=== PATIENT | male | born 1965 | race Caucasian/White ===

== ENCOUNTER → 2018-01-26 | Outpatient (CLI) | payer BC | END | disposition home or self-care (01) | LOC: C.RDSM 14:15 | PROVIDERS: ATTEND Orthopaedic Surgery | DX: M25.551 Pain in right hip (principal) ==

== ENCOUNTER 2018-11-07 06:40 | Inpatient (IN) ==
--- NOTE | 2018-10-16 09:20 | Anesthesiology Consultation ---
Date of Service October 16, 2018 Assessment & Plan (1) Encounter for pre-operative examination: Chart Review Chart Review: Acceptable Risk for Surgery (PENDING SURGEON-ORDERED PCP PREOP EVALUATION) and Patient seen in Pre Admission Testing Teaching & Discussion Pre-Anesthesia Teaching/Discussion Notes: Instructed NPO after midnight before surgery,except medications with 15 cc of water. Medication instructions provided according to the PAT guidelines. History Surgery Operation Date: 11/07/18 09:20 Proposed Procedures p Right Total Hip Arthroplasty - Mars Arguelles MD Height/Weight Height: 6 ft Weight: 116.2 kg Allergies Allergy/AdvReac Type Severity Reaction Status Date / Time No Known Allergies Allergy Verified 10/10/18 08:42 Medications Home Medications Medication Instructions Recorded Confirmed Last Taken No Known Home Medications 10/16/18 10/16/18 Unknown Past Medical History Medical History Obesity Osteoarthritis Sleep apnea NON-COMPLIANT WITH CPAP Past Family History Family History Brother History of blood clots Mother History of blood clots Past Surgical History Surgical History History of colonoscopy History of esophagogastroduodenoscopy (EGD) History of tonsillectomy Past Anesthesia History No Hx of Anesthesia Complications and No Family Hx of Anesthesia Complications History of PONV No Motion Sickness Screening History of Motion Sickness: No Social History Smoking Status: Never smoker Do You Dip or Chew Tobacco: No Hx Alcohol Use: Yes Alcohol type: beer alcohol intake frequency: holidays/special occasions only Hx Substance Use: No Exercise / Class Metabolic Activity III < 4 Walking/Shop/Light housework Review of Systems Patient reports hip pain. Patient denies chest pain, shortness of breath, reflux , cough, wheezing, palpitations. Physical Exam Vital Signs VITALS BP 123/84 P 72 TEMP 98.4 SP02 95%RA RESP 18 Full neck and c-spine range of motion. Full TMJ range of motion. TMD 3 finger breaths Mallampati Score 2 Dentition: missing molars Lungs: clear throughout to auscultation Cardiac: regular rate and rhythm, no murmurs noted Spine: normal Carotid arteries: negative bruit Extremities: no edema Testing Electrocardiogram Date: 10/16/18 Findings: + NSR @ (68) Laboratory Results 10/16/18 09:24 10/16/18 09:24 Blood Type A Positive 10/16/18 09:24 Antibody Screen NEGATIVE 10/16/18 09:24 PT 10.3 Seconds (9.0-12.0) 10/16/18 09:24 INR 1.0 (0.9-1.1) 10/16/18 09:24 Hemoglobin A1c 5.9 % (4.5-5.6) H 10/16/18 09:24 Urine Color Yellow 10/16/18 09:24 Urine Appearance Clear (Clear) 10/16/18 09:24 Urine pH 7.0 (4.5-7.5) 10/16/18 09:24 Ur Specific [place] 1.015 (1.000-1.030) 10/16/18 09:24 Urine Protein Negative (Negative) 10/16/18 09:24 Urine Glucose (UA) Negative (Negative) 10/16/18 09:24 Urine Ketones Negative (Negative) 10/16/18 09:24 Urine Nitrite Negative (Negative) 10/16/18 09:24 Ur Leukocyte Esterase Negative (Negative) 10/16/18 09:24
[2018-10-16 10:57] LABS: Basophils # (auto) 0.02 K/uL (0-0.2); Basophils % (auto) 0.3 %; Eosinophils # (auto) 0.16 K/uL (0-0.5); Eosinophils % (auto) 2.4 %; Hematocrit (blood only) 47.5 % (42-52); Hemoglobin 15.8 g/dL (14.0-18.0); Immature Granulocytes # (auto) 0.02 K/uL (0.00-0.02); Immature Granulocytes % (auto) 0.3 %; Lymphocytes # (auto) 2.46 K/uL (1.2-3.4); Lymphocytes % (auto) 36.9 %; Mean Corpuscular Hgb Conc 33.3 g/dL (32-36); Mean Corpuscular Volume 91.9 fL (80-100); Mean Platelet Volume 10.3 fL (7.4-10.4); Monocytes # (auto) 0.47 K/uL (0.11-0.59); Neutrophils # (auto) 3.54 K/uL (1.4-6.5); Neutrophils % (auto) 53.1 %; Platelet Count 190 K/uL (130-400); RDW Coefficient of Variation 13.5 % (11.5-14.5); RDW Standard Deviation 45.2 fL (36.4-46.3); Red Blood Count 5.17 M/uL (4.7-6.1); White Blood Count 6.67 K/uL (4.8-10.8)
[2018-10-16 10:59] LABS: Appearance Urine Clear (Clear); Bilirubin Urine Negative (Negative); Color Urine Yellow; Glucose Urine UA Negative (Negative); Ketones Urine Negative (Negative); Leukocyte Esterase Urine Negative (Negative); Nitrite Urine Negative (Negative); Protein Urine Negative (Negative); Specific Gravity Urine 1.015 (1.000-1.030); Urobilinogen Urine Negative (Negative)
[2018-10-16 11:05] LABS: Prothrombin Time 10.3 Seconds (9.0-12.0)
[2018-10-16 11:14] LABS: Albumin Level 3.7 gm/dl (3.4-5.0); BUN Creatinine Ratio 15.8 (10-20); Calcium 8.8 mg/dl (8.5-10.1); Creatinine Clr Calc Pharmacy 118.2 ml/min; Est GFR (African American) 106.1; Est GFR (Non-African American) 91.6; Potassium 4.4 mmol/L (3.5-5.1)
[2018-10-16 11:17] LABS: Bilirubin,Total 0.5 mg/dl (0.1-1); Globulin 3.7 gm/dl (2.5-4.0); Total Protein 7.4 gm/dl (6.4-8.2)
--- NOTE | 2018-10-16 11:42 | History & Physical Report ---
Date of Service October 16, 2018 Assessment & Plan (1) Primary localized osteoarthritis of right hip: PLAN: The patient is scheduled to undergo this procedure with Dr. Mars Arguelles at the [facility] as an inpatient on 11/07/2018. Risks and complications of the procedure such as infection, bleeding, pain, scarring, nerve and blood vessel damage, weakness, wound problems, stiffness, incomplete relief of symptoms, heart attack, stroke, , hardware failure, loosening, wear, fracture, dislocation, leg length inequality, blood clots and embolism were explained to patient by Dr. Garber at his visit today. Informed consent to perform the procedure was obtained. We faxed a copy of medical clearance form to the patient's family care provider, Jean King PA-C. We have not yet received it back. We will also need to obtain a preoperative CBC with differential, complete metabolic panel, PT, INR, PTT, blood type and screen, urinalysis, urine culture, EKG, hemoglobin A1c and a nasal culture for MRSA. The patient states he will obtain the necessary testing today during his pre-anesthesia clearance evaluation at the hospital. The patient was also instructed about purchasing a hip kit from [employer] for use after the procedure. He states he has a walker that he will bring with him on the day of surgery. I instructed him and I will discharge him with a prescription for an opioid analgesics as well as an anti-inflammatory medication and also educated him about the use of extra strength Tylenol and aspirin for DVT prophylaxis postoperatively. I will provide him with specific instructions on how to use each medication prior to discharge. The patient was educated about discharge planning. He states that he will most likely do in- home therapy for 2 weeks with [facility] and then transition to outpatient physical therapy at the clinic of his choice. I advised him that I will prescribe him with an order form for outpatient therapy at his 2-week followup. The patient was also educated about the use of antibiotics prior to dental cleaning or procedure after joint replacement surgery. I provided him with information about lectures that are offered at [facility] in regards to joint replacement surgery. I did provide him with a handicap placard paperwork to obtain to use for 6 months after surgery. All questions provided by the patient were answered in an appropriate manner. He verbalized understanding of all information provided during today's visit and thanked us for the care he has received and states if he has questions or concerns that should arise prior to the procedure date, he will contact the clinic accordingly. History of Present Illness Chief Complaint: Right knee osteoarthritis Primary Care Provider: Jean King HISTORY OF PRESENT ILLNESS: This 52-year-old male who presents to clinic today for his preoperative history and physical. The patient complains of a 1-1/2 year history of significant right hip pain that causes him to have a limited range of motion and a slightly antalgic gait. He denies any significant injury to the hip. He states that the pain has gradually increased since his initial visit with Dr. Arguelles back in December. The patient states the pain is exacerbated when he sits for a long period of time and then transitions to a standing position. He has difficulty riding his stationary bike. He states that he has gained some weight due to his limited activity due to the pain that he is experiencing. PAST MEDICAL HISTORY: Gout, gastroesophageal reflux and sleep apnea. PAST SURGICAL HISTORY: None. FAMILY HISTORY: Positive for heart disease, cancer and diabetes. ALLERGIES: The patient has no known drug allergies. CURRENT MEDICATIONS USED: None. SOCIAL HISTORY: The patient states that he drinks approximately 2-3 alcoholic beverages each evening and denies tobacco or illicit drug use. RADIOGRAPHIC IMAGING: Images of the right hip show a near complete joint space loss with diffuse peripheral and central osteophyte formation noted. DIAGNOSIS: Right hip osteoarthritis. PROCEDURE: Right total hip arthroplasty. Allergies Allergy/AdvReac Type Severity Reaction Status Date / Time No Known Allergies Allergy Verified 10/10/18 08:42 Past Med/Surg History Medical History Obesity Osteoarthritis Sleep apnea NON-COMPLIANT WITH CPAP Surgical History History of colonoscopy History of esophagogastroduodenoscopy (EGD) History of tonsillectomy Family History Brother History of blood clots Mother History of blood clots Social History Current Living Situation: Family Other Information That Helps Us Care for You: No Feels Safe at Home: Yes Safety Concerns: Feels Safe At This Time Smoking Status: Never smoker Do You Dip or Chew Tobacco: No Hx Alcohol Use: Yes Alcohol type: beer Alcohol Intake Frequency: holidays/ special occasions only Hx Substance Use: No Beliefs That Will Affect Care: None Preferred Language: Singaporean Communication Ability: Effective Chain Saw Operator Required: No Review of Systems All systems reviewed & are unremarkable except as noted in HPI & below Physical Exam 2 Vital Signs (Past 24 Hours): PHYSICAL EXAMINATION: Skin: The patient's skin is normal in appearance. No open skin lesions or discharge. Eyes: Pupils are equal and reactive to light and accommodating. Extraocular movements are intact. Throat: Posterior oropharynx clear with absence of edema, erythema or exudate. Cardiovascular exam: The patient has a regular rate and rhythm with no murmurs or gallops appreciated. Lungs: Auscultation of lung avina reveals clear breath sounds throughout with no wheezing, rales or rhonchi. Abdomen is obese, nondistended, nontender with normoactive bowel sounds. Extremities: Right hip, the patient has a positive Stinchfield test. Internal rotation to 5 degrees, external rotation to 45 degrees, both elicit referred groin pain. Hip flexion is to 90 degrees with groin pain. There is no tenderness over the trochanteric bursa. There is mild crepitation with range of motion. The patient is neurovascularly intact in the right lower extremity and has no tenderness over the posterior or lateral aspect of the hip. Code Status & VTE Plan VTE Prophylaxis Plan VTE Prophylaxis will be ordered: Yes
[2018-10-16 12:01] LABS: Estimated Average Glucose 123 mg/dl
[~2018-11-07 06:40] MED LIST: ACETAMINOPHEN 500 MG TAB PO SCH; BUPIVACAINE 0.5 % 5 MG/1 ML PF 10ML VIAL ONE; CEFAZOLIN 2000MG 2,000 MG/15 ML SYR IV SCH; CeleBREX 200 MG CAP PO SCH; FAMOTIDINE 20 MG TAB PO SCH; LR 60ML/HR IV SCH; METOCLOPRAMIDE HCL 10 MG TABLET PO SCH; ROPIVACAINE 0.5% HCL/PF 150 MG, BUPIVACAINE 0.5% MPF 30 ML, EPINEPHrine 0.15 MG, Ketoro... INFIL SCH; SCOPOLAMINE 1.5 MG TDSY TD SCH; TRAMADOL HCL 50 MG TABLET PO SCH; TRANEXAMIC ACID 1,000 MG **IV Intra-op IV SCH; dexAMETHasone 4 MG TAB PO SCH
[2018-11-07] MEDS ORDERED: MIDAZOLAM HCL 1 MG/ML 2ML VIAL ONE ×3 (07:42→11:39)
[2018-11-07] MEDS: LR 500ML BOLUS, THEN 15ML/HR IV SCH ×3 (07:50→13:58)
[2018-11-07] MEDS ORDERED: ePHEDrine sulfate 50 MG/ML AMP IV PRN (08:23)
[2018-11-07] MEDS ORDERED: HYDROmorphone INJ 2 MG/ML SYR/VIAL IV PRN (08:23)
[2018-11-07] MEDS ORDERED: ATROPINE SULFATE 0.1 MG/ML 10ML SYR IV PRN (08:23)
[2018-11-07] MEDS: TRANEXAMIC ACID 1,000 MG **IV Pre-op IV SCH ×2 (08:25→11:18)
--- NOTE | 2018-11-07 09:19 | History & Physical Bridge Note ---
Date of Service November 07, 2018 History & Physical Bridge Note I have examined the patient, reviewed the History & Physical and in the interval since the performance of the History & Physical I have noted the following changes of clinical significance: no changes noted
[2018-11-07] MEDS ORDERED: ONDANSETRON INJ 2 MG/ML 2 ML VIAL ONE (09:34)
[2018-11-07] MEDS ORDERED: POVIDONE-IODINE OP SOLN 30 ML BTL ONE (09:34)
[2018-11-07] MEDS ORDERED: ORTHO JOINT ANESTHETIC ONE (09:34)
[2018-11-07] MEDS ORDERED: PROPOFOL IV EMULSION 10 MG/ML 20 ML VIAL IV ONE ×2 (09:34)
[2018-11-07] MEDS ORDERED: LIDOCAINE HCL 2% 2 ML VIAL/AMP(20MG/ML) INFIL ONE (09:34)
[2018-11-07] MEDS ORDERED: PHENYLEPHRINE HCL 10 MG/ML VIAL ONE (10:38)
--- NOTE | 2018-11-07 11:46 | Post Operative Brief Note ---
Immediate Post Op Note v1 Date of Surgery November 07, 2018 Pre & Post Diagnosis Operation Date: 11/07/18 09:20 Pre-Op Diagnosis: Right Hip Osteoarthritis Post-Op Diagnosis: Right Hip Osteoarthritis Procedure Operation Date: 11/07/18 09:20 Actual Procedures p Right Total Hip Arthroplasty(Right) - Mars Arguelles MD Surgeon Mars Arguelles MD Communicable Disease Specialist ZORAIDA Ferguson Estimated Blood Loss 200 Findings Consistent with Post-Op Diagnosis
--- NOTE | 2018-11-07 12:11 | Operative Report ---
Post Operative Report Pre & Post Diagnosis Operation Date: 11/07/18 09:20 Pre-Op Diagnosis: Right Hip Osteoarthritis Post-Op Diagnosis: Right Hip Osteoarthritis Procedure Operation Date: 11/07/18 09:20 Actual Procedures p Right Total Hip Arthroplasty(Right) - Mars Arguelles MD Surgeon Mars Arguelles MD Secondary English Teacher ZORAIDA Ferguson Estimated Blood Loss 200 Findings Consistent with Post-Op Diagnosis Specimens Femoral head and acetabular reamings Complications none Disposition Accompanied Patient To Recovery: Yes Disposition: Recovery Room Description of Procedure I was present during the entire case assisting with wound closure and dressing application. Please see Dr. Arguelles procedure note for specifics of the case. I attest to the content of the Intraoperative Record and any orders documented therein. Any exceptions are noted below.
[2018-11-07] MEDS ORDERED: METOCLOPRAMIDE HCL INJ 5 MG/ML 2 ML VIAL IV PRN (12:12)
[2018-11-07] MEDS ORDERED: DiphenhydrAMINE HCL 50 MG/ML VIAL IV PRN (12:12)
[2018-11-07] MEDS ORDERED: MAGNESIUM HYDROXIDE SUSP 30 ML UDC PO PRN (12:12)
[2018-11-07] MEDS ORDERED: ALUMINUM/MAGNESIUM SUSP 30 ML UDC PO PRN (12:12)
[2018-11-07] MEDS ORDERED: ONDANSETRON INJ 2 MG/ML 2 ML VIAL IV PRN (12:12)
[2018-11-07] MEDS ORDERED: MoRPHine SULFATE 2 MG/ML CARP IV PRN (12:12)
[2018-11-07] MEDS ORDERED: OXYCODONE HCL IR 5 MG TAB (IMMEDIATE RELEASE) PO PRN (12:12)
[2018-11-07] MEDS ORDERED: BISACODYL 10 MG SUPP PR PRN (12:12)
[2018-11-07] MEDS ORDERED: TAMSULOSIN HCL 0.4 MG CAP PO PRN (12:12)
--- NOTE | 2018-11-07 12:42 | Operative Report ---
DATE OF OPERATION: 11/07/2018 PREOPERATIVE DIAGNOSIS: Right hip osteoarthritis. POSTOPERATIVE DIAGNOSIS: Right hip osteoarthritis. OPERATION PERFORMED: Right total hip arthroplasty. SURGEON: Mars Arguelles MD SORTING LIVESTOCK WORKER: Tony Ferguson. ESTIMATED BLOOD LOSS: 200 mL. IV FLUIDS: 600 mL crystalloid. SPECIMENS: Femoral head and acetabular reamings. COMPLICATIONS: None. IMPLANTS: 1. A DePuy Murphy Gription acetabular sector cup, 56 mm outer diameter. 2. A 35 x 6.5 mm cancellous bone screw. 3. A 56 x 36 neutral polyethylene Ultrex liner. 4. A size 5 high offset Walker femoral stem with 12/14 taper. 5. A 36 mm ceramic femoral head with a +8.5 offset. INDICATIONS: Mr. Maynard is a 52-year-old male with end-stage osteoarthritis in his right hip. He has failed conservative management. I had a long discussion with him about the risks and benefits of surgery, alternatives to surgery and expected outcomes. After reviewing all these, he elected to proceed with surgery. All questions were answered. Informed consent was signed. DESCRIPTION OF PROCEDURE: The patient was identified in the preoperative holding area where his surgical site was marked. He was given a spinal anesthetic and then brought back to the main operating room, was placed on the operating room table in lateral decubitus position. All bony prominences were padded. Perioperative antibiotics and tranexamic acid were administered. He was prepped and draped in normal sterile fashion. Prior to incision, a multidisciplinary timeout was called. All in the room were in agreement. I began by making a 16 cm incision for posterior approach to the hip. Fascia was incised in line with the incision. Charnley bow was placed. Quadratus femoris was dissected off the posterior aspect of the femur. Piriformis and short external rotators were also dissected off. A box cut was made in the capsule. Femoral head was dislocated. Our neck cut was made at 10 mm, which was our preoperative template. Next, the acetabulum was exposed. The labrum was sharply excised. He had a significant central osteophyte that was obscuring the cotyloid fossa and pulvinar fat. We then medialized him with a size 48 mm reamer, which was 8 mm less than our preoperative template size. Once we had medialized him several millimeters, I was able to expose the cotyloid fossa and medial wall. We then sequentially reamed him all the way up to a size 56 mm cup. We had excellent peripheral bleeding bone. A small amount of acetabular reamings was placed in the cotyloid fossa after irrigating it out. The 56 mm Gription cup was then impacted into position at 25 degrees of anteversion and 45 degrees of lateral opening. A 6.5 x 35 mm cancellous bone screw was then placed up into the ilium. Excellent fixation was obtained. At this point, a polyethylene liner for a 36 mm femoral head was impacted into the outer shell. Osteophytes were then removed using an osteotome both anteriorly and posteriorly. Once this was complete, the femoral neck was exposed. The abductors were protected. The lateral neck was removed with a Oscar cutter. Intramedullary guide was placed followed by the lateralizing reamer. We then reamed him up to a size 5 Walker stem. The femoral canal was then broached up to a size 5 femoral stem which had excellent torsional stability. We then trialed them with a +5 head and a high offset neck. He had a little excess laxity with a shuck test and his leg lengths were just a couple millimeters short. Therefore, I upsized him to a +8.5 mm femoral head. Here, his shuck test was excellent and his leg lengths were equal. He had good stability with no impingement in external rotation and extension. He was stable in the sleeper position. At 90 degrees of hip flexion, he could be internally rotated 40 degrees before leaving out of the cup. At this point, the trial femoral head and broach were removed. The canal was irrigated and dried. The real size 5 high offset Walker femoral stem was opened up and impacted down. It sat at the same level as the broach. Therefore, the +8.5 mm, 36 outer diameter ceramic femoral head was opened up and gently impacted onto the trunnion. We checked to ensure that the head was stable. The hip was then reduced atraumatically. The wound was irrigated with Betadine that was allowed to sit for 3 minutes. This was then suctioned out of the wound, irrigated and the periarticular injection cocktail was placed. We then began to close. The short external rotators and piriformis were repaired with #2 Vicryl through bone tunnels in the greater trochanter. The fascia was run with a looped #1 PDS. A #1 PDS was used for the subcutaneous layer. A 2-0 Vicryl was used in the deep dermis and 3-0 Monocryl in the skin. Steri-Strips were placed followed by a Silverlon dressing. A compressive dressing was placed over the top. The patient was placed into an abduction pillow, then his sedation was lifted and he was transferred to the recovery room in stable condition. POSTOPERATIVE COURSE: The patient will be admitted overnight for pain control and monitoring. He will be on aspirin for DVT prophylaxis. He will follow posterior hip precautions. I attest to the content of the Intraoperative Record and any orders documented therein. Any exception s are noted below.
--- NOTE | 2018-11-07 12:47 | XRay Report ---
XR hip 1V RT w pelvis CLINICAL HISTORY: Degenerative arthritis. Postoperative study. COMPARISON: 10/16/2018 DISCUSSION: There are postsurgical changes of a total right hip arthroplasty. The acetabular and femo ral components appear well seated. There is no dislocation. Moderate osteoarthritic changes are prese nt within the left hip. There is gas present within the soft tissues right hip consistent with recent surgery. IMPRESSION: Postsurgical changes of a total right hip arthroplasty. Electronically signed by: Jamie Geiger M.D. 11/07/2018 12:45 PM
[2018-11-07] MEDS: ACETAMINOPHEN 500 MG TAB PO SCH ×2 (14:04→21:24)
[2018-11-07] MEDS: KETOROLAC 30 MG/ML VIAL IV SCH ×2 (14:04→19:15)
[2018-11-07] MEDS: SODIUM CHLORIDE 0.9% 1000ML 1,000 ML IV SCH ×2 (14:06→23:27)
--- NOTE | 2018-11-07 14:14 | Anesthesiology Progress Note ---
Date of Service November 07, 2018 Anesthesia Post Procedure Vital Signs Vital Signs: Temp Pulse Pulse Resp BP BP Pulse Ox 11/07/18 14:03 77 16 120/70 98 11/07/18 12:45 80 19 122/64 99 11/07/18 12:40 36.7 C 74 13 118/67 96 11/07/18 12:30 82 16 118/70 100 11/07/18 12:20 74 13 125/68 95 11/07/18 12:11 36.6 C 97 H 20 126/83 97 11/07/18 07:36 36.9 C 81 20 150/85 H 97 Notes Mental Status: alert / awake / arousable Patient Amnestic to Procedure: Yes Nausea / Vomiting: adequately controlled Pain: adequately controlled Airway Patency, RR, SpO2: stable & adequate BP & HR: stable & adequate Hydration State: stable & adequate Anesthetic Complications: no major complications apparent and Pt Satisfied with anesthetic care
[2018-11-07] MEDS: CHECK SCOPOLAMINE PATCH PLACEMENT SCH ×2 (15:34→23:27)
[2018-11-07] MEDS ORDERED: TRANEXAMIC ACID 1,000 MG in 0.9 % SODIUM CHLORIDE 100 ML IV SCH (19:00)
[2018-11-07] MEDS: CEFAZOLIN 2000MG 2,000 MG/15 ML SYR IV SCH (19:14)
[2018-11-07] MEDS ORDERED: SENNA 8.6 MG TAB PO SCH (21:00)
[2018-11-07] MEDS: DOCUSATE SODIUM 100 MG CAP PO SCH (21:23)
[2018-11-07] MEDS: ASPIRIN 81 MG ECTAB PO SCH (21:24)
[2018-11-08] MEDS: CEFAZOLIN 2000MG 2,000 MG/15 ML SYR IV SCH (01:16)
[2018-11-08] MEDS: KETOROLAC 30 MG/ML VIAL IV SCH ×2 (01:16→10:25)
[2018-11-08] MEDS ORDERED: Nursing to Pharmacy Communication ONE (03:01)
[2018-11-08 07:04] LABS: Hematocrit (blood only) 39.1 % (42-52); Hemoglobin 12.8 g/dL (14.0-18.0); Immature Granulocytes # (auto) 0.05 K/uL (0.00-0.02); Immature Granulocytes % (auto) 0.3 %; Lymphocytes % (auto) 9.4 %; Mean Corpuscular Hgb Conc 32.7 g/dL (32-36); Mean Corpuscular Volume 90.9 fL (80-100); Mean Platelet Volume 9.9 fL (7.4-10.4); Monocytes # (auto) 1.21 K/uL (0.11-0.59); Monocytes % (auto) 8.2 %; Neutrophils # (auto) 12.18 K/uL (1.4-6.5); Neutrophils % (auto) 82.1 %; Platelet Count 178 K/uL (130-400); RDW Coefficient of Variation 13.5 % (11.5-14.5); RDW Standard Deviation 44.5 fL (36.4-46.3); White Blood Count 14.84 K/uL (4.8-10.8)
[2018-11-08 07:31] LABS: Albumin Level 2.9 gm/dl (3.4-5.0); BUN Creatinine Ratio 18.3 (10-20); Calcium 7.8 mg/dl (8.5-10.1); Creatinine Clr Calc Pharmacy 142.3 ml/min; Est GFR (Non-African American) 101.8; Phosphorus 2.7 mg/dl (2.5-4.9)
[2018-11-08] MEDS ORDERED: dexAMETHasone 4 MG TAB PO SCH (08:00)
[2018-11-08] MEDS ORDERED: ACETAMINOPHEN 500 MG TAB PO SCH (08:00)
[2018-11-08] MEDS: DOCUSATE SODIUM 100 MG CAP PO SCH (08:13)
[2018-11-08] MEDS: ASPIRIN 81 MG ECTAB PO SCH (08:14)
[2018-11-08] MEDS ORDERED: PANTOprazole 40 MG TAB PO SCH (09:00)
--- NOTE | 2018-11-08 09:32 | Orthopedic Progress Note ---
Date of Service November 08, 2018 Assessment & Plan (1) Primary localized osteoarthritis of right hip: S/P RTHR POD 1 *Patient doing well. Ready for D/C today. *Plan to D/C after seen by PT today. *Pt aware of SHP and use of walker prn ambulation. *Will receive HHPT until his f/u appointment in the office *Pt will continue with ice to right hip prn pain and swelling *Pt will continue with philomena loera and ASA protocol for DVT prophylaxis. *Pt will continue with narcotic pain medication prn pain and/or tylenol *Pt aware Rxs and instructions will be provided upon D/C. *Advised to call office with any questions or concerns. Present on Admission?: Yes Subjective Patient is awake resting in bed finishing his breakfast. He has no complaints. He slept well. Pain controlled. States he is "doing better than he thought" . He would like to be discharged today. Denies f/c/s, chest pain, SOB, calf pain, N/T/R into legs. Physical Exam 2 Vital Signs (Past 24 Hours): Last Vital Signs Temp 36.5 C 11/08/18 07:20 Pulse 63 11/08/18 07:20 Resp 16 11/08/18 07:20 BP 115/75 11/08/18 07:20 Pulse Ox 97 11/08/18 07:20 Physical Exam: Right hip silvalone dressing C/D/I. No pain with right hip log rolling. NV intact B LE with palpable DP and PT pulses. Neg homans. Calves soft. Brisk Capillary refill. Able to wiggle toes and ankles. Results & Data Laboratory Results 11/08/18 11/08/18 Range/Units 06:49 06:49 WBC 14.84 H (4.8-10.8) K/uL RBC 4.30 L (4.7-6.1) M/uL Hgb 12.8 L (14.0-18.0) g/dL Hct 39.1 L (42-52) % MCV 90.9 (80-100) fL MCH 29.8 (25-34) pg MCHC 32.7 (32-36) g/dL RDW Std Deviation 44.5 (36.4-46.3) fL RDW Coeff of Aroldo 13.5 (11.5-14.5) % Plt Count 178 (130-400) K/uL MPV 9.9 (7.4-10.4) fL Immature Gran % (Auto) 0.3 % Neut % (Auto) 82.1 % Lymph % (Auto) 9.4 % Petroleum % (Auto) 8.2 % Eos % (Auto) 0.0 % Baso % (Auto) 0.0 % Immature Gran # (Auto) 0.05 H (0.00-0.02) K/uL Neut # (Auto) 12.18 H (1.4-6.5) K/uL Lymph # (Auto) 1.40 (1.2-3.4) K/uL Petroleum # (Auto) 1.21 H (0.11-0.59) K/uL Eos # (Auto) 0.00 (0-0.5) K/uL Baso # (Auto) 0.00 (0-0.2) K/uL Sodium 140 (136-145) mmol/L Potassium 4.0 (3.5-5.1) mmol/L Chloride 110 H (98-107) mmol/L Carbon Dioxide 27 (21-32) mmol/L Anion Gap 3.0 (3-11) BUN 14 (7-18) mg/dl Creatinine 0.79 (0.6-1.4) mg/dl Est Cr Clr Drug Dosing 142.3 ml/min Est GFR ( Amer) 118.0 Est GFR (Non-Af Amer) 101.8 BUN/Creatinine Ratio 18.3 (10-20) Glucose 139 H (70-99) mg/dl Calcium 7.8 L (8.5-10.1) mg/dl Phosphorus 2.7 (2.5-4.9) mg/dl Albumin 2.9 L (3.4-5.0) gm/dl
[2018-11-08] MEDS: SODIUM CHLORIDE 0.9% 1000ML 1,000 ML IV SCH (10:07)
--- NOTE | 2018-11-08 10:51 | Discharge Summary ---
Date of Service November 08, 2018 Admission HPI Per Admitting Provider HISTORY OF PRESENT ILLNESS: This 52-year-old male who presents to clinic today for his preoperative history and physical. The patient complains of a 1-1/2 year history of significant right hip pain that causes him to have a limited range of motion and a slightly antalgic gait. He denies any significant injury to the hip. He states that the pain has gradually increased since his initial visit with Dr. Arguelles back in December. The patient states the pain is exacerbated when he sits for a long period of time and then transitions to a standing position. He has difficulty riding his stationary bike. He states that he has gained some weight due to his limited activity due to the pain that he is experiencing. PAST MEDICAL HISTORY: Gout, gastroesophageal reflux and sleep apnea. PAST SURGICAL HISTORY: None. FAMILY HISTORY: Positive for heart disease, cancer and diabetes. ALLERGIES: The patient has no known drug allergies. CURRENT MEDICATIONS USED: None. SOCIAL HISTORY: The patient states that he drinks approximately 2-3 alcoholic beverages each evening and denies tobacco or illicit drug use. RADIOGRAPHIC IMAGING: Images of the right hip show a near complete joint space loss with diffuse peripheral and central osteophyte formation noted. DIAGNOSIS: Right hip osteoarthritis. PROCEDURE: Right total hip arthroplasty. Principal Diagnosis Right Hip Osteoarthritis S/P Right Total Hip Replacement 11/07/18 Discharge Data Allergies Allergy/AdvReac Type Severity Reaction Status Date / Time No Known Allergies Allergy Verified 11/07/18 07:33 Consultations 11/08/18 08:00 Consult Case Management - Discharge Planning Routine Procedures Performed Operation Date: 11/07/18 09:20 Actual Procedures p Right Total Hip Arthroplasty(Right) - Mars Arguelles MD Hospital Course (1) Primary localized osteoarthritis of right hip: Patient admitted to hospital after undergoing a Right Total Hip Arthroplasty by Dr Arguelles on 11-07-18. There was no intra or post-operative complications. Patients hospital stay was without incident. He tolerated a PO diet/fluids. He was able to void. His pain was controlled with PO medication. His labs and vitals WNL. He tolerated a round of Physical Therapy on POD 1, ambulating with a walker and following Standard Hip Precautions. His silvalone dressing was C/D/I. Patient was dicharged on POD 1 to home with home health physical therapy. New Discharge medications included oxycodone, tylenol , diclofenac, ASA. He was given instructions on how to take. He was also instructed on andrew hose to be worn at all times when he is up and about until his follow-up appointment. Dressing to remain on until follow-up. More detailed explanation of DC instructions were provided. He is scheduled for follow-up in 2wks. Advised to call office with any questions or concerns. Total Time Total Time Spent Total Time Spent (In Minutes): 20min Discharge Plan Discharge Items Patient Disposition: Home - Home Health Services Reason For Visit: Right Hip Osteoarthritis Discharge Diagnosis: Right hip osteoarthritis Condition: Good Discharge Goals: Decrease discomfort, Improve function and Increase independence Activity: As commented below Lifting: None Bathing: Keep incision dry Bathing Comment: May shower tomorrow Sexual Activity: Wait until after follow-up appointment Exercise/Sports: Wait until after follow-up appointment Driving/Machine Use Comment: No driving until cleared by your medical logistics specialist Weightbearing Comment: as tolerated with walker assistance Non-emergency contact: Primary Care Provider Call non-emergency contact if: you have any medication questions, your pain is not controlled, your temperature is above 101.5, your wound has increased drainage and your wound pain has increased Follow-up/Referrals: Jean King, TIGIST [Primary Care Provider] - Diet: Regular Addtl Provider Instructions: Post-operative Instructions Dear Patient and Family/Friends, Before you are discharged from the hospital, it is important to know what to expect when you get home after surgery. To that end, we have created this sheet of discharge instructions which covers many commonly asked questions. Make sure you go through this sheet in its entirety with your nurse before you are discharged. Please note that we will go over the specifics of your surgery and recovery when you return for your first post-operative visit. Sincerely, Dr. Arguelles Post Op Medications: You will be discharged with a prescription for Oxycodone for pain control. You can take 1-2 tablets every 4-6 hrs for breakthrough pain. We would like you to take prescribed Diclofenac Sodium 75 mg 1 tab twice daily for 30 days with 1 refill, and 2 Extra Strength Tylenol (please purchase this medication) every 6-8 hrs for pain control for the first 30 days post operatively. You may take the Tylenol with the Oxycodone. Also you will be on 81 mg Aspirin twice daily for 30 days post operatively (Please purchase this medication). You will use this medication along with the ANDREW stockings to prevent blood clots post surgically. Pain Expect to be in a fair amount of pain after surgery. Remember, our goal is not to eliminate your pain, but to make it tolerable. It is a good idea to stay ahead of your pain by taking the medications you were prescribed once you get home. Typically, the pain starts improving 3-7 days after surgery. You should start weaning off the narcotic pain medication (oxycodone, hydrocodone, hydromorphone, morphine) as soon as your pain improves. Please call our office if your pain is not adequately controlled. Ice Ice your operative site at least 5 times a day for 15-30 minutes at a time. Make sure you have a thin cloth between the ice or cooling unit and your skin to prevent de jesus bite. This is especially important if you received a nerve block. Continue icing your operative site for the first 5-7 days after surgery , then as needed. Diet/Nausea/Vomiting Start by drinking clear liquids and eating crackers. If you can tolerate this, then you may resume your normal diet. If you feel nauseated or vomit, take Zofran/ondansetron (if prescribed). Please call our office if you have intractable nausea or vomiting, or, if after hours, you may go to the Emergency Room for help. Constipation Constipation is a common side effect of narcotic pain medication. If you have not had a bowel movement within 2 days after surgery, we recommend purchasing an over the counter laxative such as Milk of Magnesia, Dulcolax, or Miralax from a local pharmacy, and taking it as instructed. Call our clinic if any questions. Slings and Braces If you were placed in a sling or brace, it must be worn at all times, including sleep. You may remove your sling or brace for physical therapy, home exercises , and showering. The length of time you will be in your brace and range of motion restrictions depends on what surgery you had; these details will be reviewed at your first post-operative appointment. Nerve block The anesthesia team sometimes places a nerve block to help with post-operative pain control. This results in significant numbness and inability to move the extremity. The nerve block usually wears off in 8-12 hours, but sometimes can last up to 24 hours. Please call our office if you are still unable to move your extremity after 24 hours, unless you received a pain pump to take home. Nerve blocks typically wear off quickly, so start taking pain medication as soon as you start feeling soreness near your surgical site. Weight bearing and Range of Motion. Do not bear any weight through your operative extremity immediately after surgery. If you had upper extremity surgery, do not lift anything with that arm. If you are in a knee brace, keep it locked in place until your follow-up. We will discuss your weight bearing, range of motion, and lifting restrictions in detail at your first post-operative appointment. Continuous Passive Motion (CPM) Machine If you were prescribed a CPM machine, it will start after your first post- operative appointment, at which time we will give you instructions on the range of motion settings and duration of treatment Physical therapy You will be given a prescription for physical therapy or occupational therapy at your first post-operative appointment. Typically, patients start therapy within 1 week of surgery Wound care and showering We will inspect your wound at your first post-operative visit, and may do a dressing change at that time. Most patients will be in a water-proof dressing that is removed 14 days after surgery. It is normal to see some dried blood on the dressing. Do not remove your dressing, paper strips or sutures yourself unless you are given permission. Showering is allowed the day after surgery. Do not scrub or remove any dressings. The wound should not be submerged underwater (i.e. in a bathtub or pool) until 4 weeks after surgery ANDREW stockings If you were given white stockings, these are to be worn at all times except to shower (on both legs) for the first 2 weeks after surgery. Driving You may not drive while taking narcotic pain medication or while in a cast, splint, sling or brace. You, the patient, need to make the final determination about when you are safe to drive, however, the earliest you may consider driving after surgery is below: Hand/Wrist/Elbow Surgery: 3 days Shoulder Surgery: 2 weeks Hip,/Knee/Ankle Surgery: 4 weeks Fracture repair: 6 weeks Return to Work Your return to work depends on what surgery was done and what type of work you do. Please bring any paperwork your employer needs completed to your first post -operative visit. Also, bring a description of your job duties, as this helps us to understand what risks you may face at work. Travel Avoid long distance travel (greater than 1 hour) in airplanes and cars for the first 6 weeks after surgery. If you must travel, you need to have a Doppler ultrasound done before you travel to rule out a blood clot in your legs. Follow-up You should have a follow-up appointment already scheduled 1-2 days after surgery. If not, please contact our office to make this appointment before you leave the hospital. When to call the office It is normal to have swelling and bruising in the limb that was operated on. This will improve with time. It is also normal to have fevers for the first 2 days after surgery. Reasons you should call your doctor include: Uncontrolled pain; Nausea, vomiting, or constipation that does not improve with medication; Fevers over 101.5, chills, sweats; Drainage or bleeding from the wound; Foul odor; Spreading areas of redness; Any other concerns Prescriptions: New oxycodone 5 mg tablet 5 mg PO Q6H PRN (Reason: pain) Qty: 30 RF: 0 diclofenac sodium 75 mg tablet,delayed release (DR/EC) 75 mg PO BID PRN (Reason: pain) 30 Days Qty: 60 RF: 1 No Action No Known Home Medications RF: 0 Stand-Alone Forms: [facility], Opioid Pain Management Discharge Orders: Discharge Order (Routine); Ordered 11/08/18 Ordered By: [place] Admission Data Admit Date/Time: 11/07/18 12:12 Attending Provider: Mars Arguelles Admit Provider: Mars Arguelles Primary Care Provider: Jean King Service: Surgical Services Other Interventions: Discharge Summary Assessment (RN) Last Done: 11/08/18 09:47
--- NOTE | 2018-11-08 11:27 | Anesthesiology Progress Note ---
Date of Service November 08, 2018 Anesthesia Post Procedure Vital Signs Vital Signs: Temp Pulse Pulse Resp BP Pulse Ox 11/08/18 09:47 36.5 C 77 63 16 115/75 97 11/08/18 07:20 36.5 C 63 16 115/75 97 11/08/18 03:25 36.9 C 80 18 123/69 95 11/07/18 22:57 36.7 C 78 18 114/69 94 11/07/18 19:19 36.9 C 93 H 16 138/72 95 11/07/18 15:58 37.0 C 94 H 18 148/77 H 94 11/07/18 15:13 36.9 C 79 16 129/71 96 11/07/18 14:03 77 16 120/70 98 11/07/18 12:45 80 19 122/64 99 11/07/18 12:40 36.7 C 74 13 118/67 96 11/07/18 12:30 82 16 118/70 100 11/07/18 12:20 74 13 125/68 95 11/07/18 12:11 36.6 C 97 H 20 126/83 97 Pain Intensity Right Hip: Pain Intensity: 2 Notes Mental Status: alert / awake / arousable and participated in evaluation Patient Amnestic to Procedure: Yes Nausea / Vomiting: adequately controlled Pain: adequately controlled Airway Patency, RR, SpO2: stable & adequate Hydration State: stable & adequate Neuraxial Anesthesia: was administered and sensory block is resolving Anesthetic Complications: no major complications apparent and Pt Satisfied with anesthetic care
[2018-11-08] MEDS ORDERED: CeleBREX 200 MG CAP PO SCH (21:00)
== END 2018-11-08 13:51 | disposition home health service (06) | DRG 470 ==
LOC: ASU 06:40 → 3E 12:12